=== PATIENT | male | born 1940 | race Caucasian/White ===

== ENCOUNTER 2019-06-14 14:58 | Inpatient (IN) | payer OTHER, MEDICAID ==
[~2019-06-14] VITALS: Ht 170.2 cm; Wt 87.1 kg
[2019-06-14 15:23] VITALS: BP_SYST 112
[2019-06-14 15:48] LABS: BILIRUBIN,URINE NEGATIVE (NEGATIVE); CLARITY/URINE HAZY (CLEAR); COLOR,URINE YELLOW (YELLOW); GLUCOSE,URINE NEGATIVE (NEGATIVE); KETONES,URINE NEGATIVE (NEGATIVE); LEUKOCYTE ESTERASE ,URINE 3+ (NEGATIVE); NITRITE, URINE NEGATIVE (NEGATIVE); PH,URINE 5.5 (5.0-8.0); PROTEIN URINE NEGATIVE (NEGATIVE); UROBILINOGEN,URINE 0.2 (0.2-1.0)
[2019-06-14 15:50] LABS: BLOOD, URINE TRACE (NEGATIVE)
[2019-06-14 16:05] LABS: BACTERIA,URINE FEW /HPF (None Seen); WBC,URINE >100 /HPF (0-3)
[2019-06-14 16:06] LABS: MUCUS,URINE None Seen /LPF (None Seen)
[2019-06-14] MEDS ORDERED: cefTRIAXone 1 GM IVPB PREMIX 50 ML IV ONE (16:15)
[2019-06-14 16:45] LABS: BASOPHILS % (AUTO) 0.6 % (0.0-2.0); EOSINOPHILS # (AUTO) 0.2 K/uL (0.0-0.4); EOSINOPHILS % (AUTO) 5.1 % (0.0-4.0); HEMATOCRIT 27.7 % (36-54); HEMOGLOBIN 8.8 g/dL (14.0-18.0); LYMPHOCYTES # (AUTO) 0.9 K/uL (1.0-5.5); LYMPHOCYTES % (AUTO) 19.7 % (20.5-51.5); MEAN CORPUSCULAR HEMOGLOBIN 29 pg (27-31); MEAN CORPUSCULAR HGB CONC 32 % (32-36); MEAN CORPUSCULAR VOLUME 91 fL (79.0-98.0); MONOCYTES # (AUTO) 0.8 K/uL (0.0-1.0); MONOCYTES % (AUTO) 16.7 % (1.7-9.3); NEUTROPHILS # (AUTO) 2.8 K/uL (1.8-7.7); NEUTROPHILS % (AUTO) 57.9 % (40.0-70.0); PLATELET COUNT (AUTO) 101 K/uL (130-430); RED BLOOD CELL COUNT(AUTO) 3.05 MIL/uL (4.2-6.2); RED CELL DISTRIBUTION WIDTH 20.5 % (9.0-15.0); WHITE BLOOD COUNT (AUTO) 4.8 K/uL (4.8-10.8)
[2019-06-14 16:51] LABS: ANION GAP 8 (5-15); CALCIUM 10.3 mg/dL (8.4-11.0); CHLORIDE 104 mmol/L (98-107); CREATININE 2.44 mg/dL (0.55-1.30); GLUCOSE 187 mg/dL (70-99); POTASSIUM 3.6 mmol/L (3.5-5.1); SODIUM SERUM 138 mmol/L (136-145); UREA NITROGEN, BLOOD 81 mg/dL (8-21)
[2019-06-14 16:55] LABS: ALANINE AMINOTRANSFERASE 23 U/L (12-78); ALBUMIN 3.1 g/dL (3.4-4.8); ASPARTATE AMINOTRANSFERASE 15 U/L (10-37); TOTAL BILIRUBIN 0.4 mg/dL (0.0-1.0)
[2019-06-14] MEDS ORDERED: ZOLP5TAB2 PO (17:01)
[2019-06-14] MEDS ORDERED: NA P133E41 RC (17:01)
[2019-06-14] MEDS ORDERED: MOM PO (17:01)
[2019-06-14] MEDS ORDERED: TAMS0.4C96 PO (17:01)
[2019-06-14] MEDS ORDERED: ALLO100T PO (17:01)
[2019-06-14] MEDS ORDERED: TYC3 PO (17:01)
[2019-06-14] MEDS ORDERED: FAMO40TA7 PO (17:01)
[2019-06-14] MEDS ORDERED: FURO40TA5 PO (17:01)
[2019-06-14] MEDS ORDERED: BISA10SU61 RC (17:01)
[2019-06-14] MEDS ORDERED: FINA5TAB3 PO (17:01)
[2019-06-14] MEDS ORDERED: CALC0.258 PO (17:01)
[2019-06-14] MEDS ORDERED: ACET325T53 PO (17:01)
[2019-06-14] MEDS ORDERED: BUME1TAB4 PO (17:01)
[2019-06-14] MEDS ORDERED: METO50TA7 PO (17:01)
[2019-06-14 18:19] VITALS: BP_SYST 101
[2019-06-14 19:39] VITALS: BP_SYST 109
[2019-06-14] MEDS: FUROSEMIDE 40 MG/4 ML VIAL IVP SCH (20:08)
[2019-06-14] MEDS: HYDROcodone/ACETAMIN 5-325 MG TAB (NORCO/ VICODIN) PO PRN (21:04)
[2019-06-14] MEDS: ZOLPIDEM TARTRATE 5 MG TABLET PO PRN (21:18)
[2019-06-15 01:32] VITALS: BP_SYST 117
[2019-06-15] MEDS: HYDROcodone/ACETAMIN 5-325 MG TAB (NORCO/ VICODIN) PO PRN ×2 (02:00→22:37)
[2019-06-15] MEDS: FUROSEMIDE 40 MG/4 ML VIAL IVP SCH ×2 (07:59→20:18)
[2019-06-15 08:00] VITALS: BP_SYST 112
[2019-06-15 09:10] LABS: INR 1.6 (0.80-1.20)
[2019-06-15 09:11] LABS: PROTHROMBIN TIME 16.2 SECS (9.5-12.5)
[2019-06-15 09:21] LABS: ALANINE AMINOTRANSFERASE 24 U/L (12-78); ALBUMIN 3.3 g/dL (3.4-4.8); ASPARTATE AMINOTRANSFERASE 14 U/L (10-37); CALCIUM 10.4 mg/dL (8.4-11.0); CHLORIDE 103 mmol/L (98-107); GLUCOSE 185 mg/dL (70-99); POTASSIUM 3.7 mmol/L (3.5-5.1); SODIUM SERUM 141 mmol/L (136-145); THYROID STIMULATING HORMONE 1.88 uIu/mL (0.36-3.74); TOTAL BILIRUBIN 0.5 mg/dL (0.0-1.0); UREA NITROGEN, BLOOD 86 mg/dL (8-21)
[2019-06-15 09:29] LABS: ANION GAP 13 (5-15)
[2019-06-15] MEDS ORDERED: ALLOPURINOL 100 MG TABLET (ZYLOPRIM) PO ONE (09:30)
[2019-06-15] MEDS ORDERED: TAMSULOSIN HCL 0.4 MG CAP PO ONE (09:30)
[2019-06-15 09:52] LABS: TOTAL IRON BIND. CAPACITY 341 ug/dL (250-450)
[2019-06-15] MEDS: APIXABAN 2.5 MG TABLET PO SCH ×2 (10:02→20:20)
[2019-06-15] MEDS: CARVEDILOL 6.25 MG TABLET (COREG) PO SCH ×2 (10:03→20:19)
[2019-06-15 10:07] LABS: BILIRUBIN,URINE NEGATIVE (NEGATIVE); CLARITY/URINE CLEAR (CLEAR); COLOR,URINE YELLOW (YELLOW); GLUCOSE,URINE NEGATIVE (NEGATIVE); KETONES,URINE NEGATIVE (NEGATIVE); LEUKOCYTE ESTERASE ,URINE 2+ (NEGATIVE); NITRITE, URINE NEGATIVE (NEGATIVE); PH,URINE 5.5 (5.0-8.0); PROTEIN URINE TRACE (NEGATIVE); UROBILINOGEN,URINE 0.2 (0.2-1.0)
[2019-06-15 10:08] LABS: BLOOD, URINE TRACE (NEGATIVE)
[2019-06-15 10:12] LABS: BACTERIA,URINE FEW /HPF (None Seen); MUCUS,URINE None Seen /LPF (None Seen); RBC,URINE 0-3 /HPF (0-3); WBC,URINE 20-50 /HPF (0-3)
[2019-06-15 12:00] VITALS: BP_SYST 108
[2019-06-15 15:42] VITALS: BP_SYST 109
[2019-06-15 20:00] VITALS: BP_SYST 140
[2019-06-15] MEDS: ZOLPIDEM TARTRATE 5 MG TABLET PO PRN (20:19)
[2019-06-16 00:59] VITALS: BP_SYST 114
[2019-06-16 07:23] LABS: BASOPHILS % (AUTO) 0.7 % (0.0-2.0); EOSINOPHILS # (AUTO) 0.3 K/uL (0.0-0.4); EOSINOPHILS % (AUTO) 7.2 % (0.0-4.0); HEMATOCRIT 28.1 % (36-54); LYMPHOCYTES # (AUTO) 1.2 K/uL (1.0-5.5); LYMPHOCYTES % (AUTO) 27.3 % (20.5-51.5); MEAN CORPUSCULAR HEMOGLOBIN 29 pg (27-31); MEAN CORPUSCULAR HGB CONC 32 % (32-36); MEAN CORPUSCULAR VOLUME 90 fL (79.0-98.0); MONOCYTES # (AUTO) 0.7 K/uL (0.0-1.0); MONOCYTES % (AUTO) 15.9 % (1.7-9.3); NEUTROPHILS # (AUTO) 2.2 K/uL (1.8-7.7); NEUTROPHILS % (AUTO) 48.9 % (40.0-70.0); PLATELET COUNT (AUTO) 99 K/uL (130-430); RED BLOOD CELL COUNT(AUTO) 3.11 MIL/uL (4.2-6.2); RED CELL DISTRIBUTION WIDTH 20.6 % (9.0-15.0); WHITE BLOOD COUNT (AUTO) 4.5 K/uL (4.8-10.8)
[2019-06-16 07:36] LABS: ANION GAP 7 (5-15); CALCIUM 10.6 mg/dL (8.4-11.0); CHLORIDE 102 mmol/L (98-107); CHOLESTEROL 140 mg/dL (<200); CREATININE 2.31 mg/dL (0.55-1.30); GLUCOSE 153 mg/dL (70-99); HDL CHOLESTEROL 31 mg/dL (>45); LDL CHOLESTEROL 94 mg/dL (<100); POTASSIUM 3.7 mmol/L (3.5-5.1); SODIUM SERUM 137 mmol/L (136-145); TRIGLYCERIDES 93 mg/dL (30-150); UREA NITROGEN, BLOOD 83 mg/dL (8-21)
[2019-06-16 08:06] VITALS: BP_SYST 120
[2019-06-16] MEDS: FUROSEMIDE 40 MG/4 ML VIAL IVP SCH ×2 (08:46→22:05)
[2019-06-16] MEDS: TAMSULOSIN HCL 0.4 MG CAP PO SCH (08:47)
[2019-06-16] MEDS: CARVEDILOL 6.25 MG TABLET (COREG) PO SCH ×2 (08:47→22:04)
[2019-06-16] MEDS: ALLOPURINOL 100 MG TABLET (ZYLOPRIM) PO SCH (08:48)
[2019-06-16] MEDS: APIXABAN 2.5 MG TABLET PO SCH ×2 (08:53→22:05)
[2019-06-16] MEDS: HYDROcodone/ACETAMIN 5-325 MG TAB (NORCO/ VICODIN) PO PRN ×2 (09:59→22:04)
[2019-06-16 11:55] VITALS: BP_SYST 98
[2019-06-16 13:12] LABS: FERRITIN 46 ng/mL (30-400)
[2019-06-16 15:58] LABS: PATIENT WEIGHT 195 LBS
[2019-06-16 16:00] VITALS: BP_SYST 101
[2019-06-16 17:32] LABS: TOTAL VOLUME 24HRS,URINE 1900 mL; TPROTEIN U,24HR 438.9 mg/24HR (0-130)
[2019-06-16 17:34] LABS: CREATININE,URINE 27.1 MG/DL (30-125)
[2019-06-16 18:44] LABS: CREATININE 2.31 mg/dL (0.55-1.30); CREATININE CLEARANCE,URINE 13.4 ml/min (80-120)
[2019-06-16 21:00] VITALS: BP_SYST 114
[2019-06-16] MEDS: ZOLPIDEM TARTRATE 5 MG TABLET PO PRN (22:03)
[2019-06-17 00:37] VITALS: BP_SYST 109
[2019-06-17 05:33] LABS: BASOPHILS % (AUTO) 0.6 % (0.0-2.0); EOSINOPHILS # (AUTO) 0.3 K/uL (0.0-0.4); EOSINOPHILS % (AUTO) 6.6 % (0.0-4.0); HEMATOCRIT 27.1 % (36-54); HEMOGLOBIN 8.8 g/dL (14.0-18.0); LYMPHOCYTES # (AUTO) 1.5 K/uL (1.0-5.5); LYMPHOCYTES % (AUTO) 28.3 % (20.5-51.5); MEAN CORPUSCULAR HEMOGLOBIN 29 pg (27-31); MEAN CORPUSCULAR HGB CONC 32 % (32-36); MEAN CORPUSCULAR VOLUME 91 fL (79.0-98.0); MONOCYTES # (AUTO) 0.7 K/uL (0.0-1.0); MONOCYTES % (AUTO) 13.5 % (1.7-9.3); NEUTROPHILS # (AUTO) 2.7 K/uL (1.8-7.7); PLATELET COUNT (AUTO) 102 K/uL (130-430); RED BLOOD CELL COUNT(AUTO) 2.98 MIL/uL (4.2-6.2); WHITE BLOOD COUNT (AUTO) 5.3 K/uL (4.8-10.8)
[2019-06-17 06:12] LABS: ALANINE AMINOTRANSFERASE 24 U/L (12-78); ALBUMIN 3.2 g/dL (3.4-4.8); ANION GAP 6 (5-15); ASPARTATE AMINOTRANSFERASE 16 U/L (10-37); CALCIUM 9.9 mg/dL (8.4-11.0); CHLORIDE 104 mmol/L (98-107); CREATININE 2.74 mg/dL (0.55-1.30); GLUCOSE 137 mg/dL (70-99); POTASSIUM 3.8 mmol/L (3.5-5.1); SODIUM SERUM 140 mmol/L (136-145); TOTAL BILIRUBIN 0.3 mg/dL (0.0-1.0); UREA NITROGEN, BLOOD 89 mg/dL (8-21)
[2019-06-17 08:22] VITALS: BP_SYST 108; BP_SYST 144
[2019-06-17] MEDS: HYDROcodone/ACETAMIN 5-325 MG TAB (NORCO/ VICODIN) PO PRN ×2 (08:57→15:38)
[2019-06-17] MEDS: TAMSULOSIN HCL 0.4 MG CAP PO SCH (08:58)
[2019-06-17] MEDS: APIXABAN 2.5 MG TABLET PO SCH ×2 (08:58→20:37)
[2019-06-17] MEDS: ALLOPURINOL 100 MG TABLET (ZYLOPRIM) PO SCH (08:59)
[2019-06-17] MEDS: CARVEDILOL 6.25 MG TABLET (COREG) PO SCH ×2 (08:59→20:38)
[2019-06-17] MEDS: FUROSEMIDE 40 MG/4 ML VIAL IVP SCH ×2 (09:31→20:42)
[2019-06-17 11:33] VITALS: BP_SYST 126
[2019-06-17 15:21] VITALS: BP_SYST 98
[2019-06-17] MEDS ORDERED: LEVOFLOXACIN 250 MG/D5W 50 ML IV SCH (17:45)
[2019-06-17 20:00] VITALS: BP_SYST 95
[2019-06-17] MEDS ORDERED: LEVOFLOXACIN 250 MG/D5W 50 ML IV ONE (21:26)
[2019-06-17] MEDS ORDERED: IPRATROPIUM/ALBUTEROL SULFATE 3 ML AMPUL.NEB (DUONEB) INH PRN (23:30)
[2019-06-17 23:34] VITALS: BP_SYST 95
[2019-06-17] MEDS: ZOLPIDEM TARTRATE 5 MG TABLET PO PRN (23:37)
[2019-06-17] MEDS ORDERED: LORazepam 1 MG TABLET PO ONE (23:45)
[2019-06-17] MEDS ORDERED: HYDROcodone/ACETAMIN 5-325 MG TAB (NORCO/ VICODIN) PO ONE (23:45)
[2019-06-18 00:36] VITALS: BP_SYST 107
[2019-06-18 07:19] LABS: ANION GAP 8 (5-15); CALCIUM 10.3 mg/dL (8.4-11.0); CHLORIDE 103 mmol/L (98-107); CREATININE 2.46 mg/dL (0.55-1.30); GLUCOSE 128 mg/dL (70-99); POTASSIUM 3.7 mmol/L (3.5-5.1); SODIUM SERUM 140 mmol/L (136-145); UREA NITROGEN, BLOOD 84 mg/dL (8-21)
[2019-06-18 08:08] VITALS: BP_SYST 92
[2019-06-18] MEDS: CARVEDILOL 6.25 MG TABLET (COREG) PO SCH (09:00)
[2019-06-18] MEDS: ALLOPURINOL 100 MG TABLET (ZYLOPRIM) PO SCH (09:16)
[2019-06-18] MEDS: TAMSULOSIN HCL 0.4 MG CAP PO SCH (09:16)
[2019-06-18] MEDS: APIXABAN 2.5 MG TABLET PO SCH (09:17)
[2019-06-18] MEDS ORDERED: LEVOFLOXACIN 250 MG TABLET PO SCH (10:00)
[2019-06-18 10:39] VITALS: BP_SYST 117
[2019-06-18 11:01] VITALS: BP_SYST 117
[2019-06-18 12:00] VITALS: BP_SYST 127
[2019-06-18] MEDS: HYDROcodone/ACETAMIN 5-325 MG TAB (NORCO/ VICODIN) PO PRN (12:24)
[2019-06-18] MEDS ORDERED: CARVEDILOL 3.125 MG TABLET (COREG) PO SCH (21:00)
[2019-06-19] MEDS ORDERED: FUROSEMIDE 40 MG TABLET PO SCH (09:00)
== END 2019-06-18 13:10 | DRG 291 ==
LOC: SED 14:58 → STU 17:37
PROVIDERS: ADMIT Internal Medicine Hospice and Palliative Medicine; ATTEND Internal Medicine Hospice and Palliative Medicine
DX: I13.0 Hypertensive heart and chronic kidney disease with heart failure and stage 1 through stage 4 chronic kidney disease, or unspecified chronic kidney disease (principal); I50.33 Acute on chronic diastolic (congestive) heart failure; N17.0 Acute kidney failure with tubular necrosis; N18.4 Chronic kidney disease, stage 4 (severe); N39.0 Urinary tract infection, site not specified; N13.30 Unspecified hydronephrosis; E11.40 Type 2 diabetes mellitus with diabetic neuropathy, unspecified; E11.22 Type 2 diabetes mellitus with diabetic chronic kidney disease; I48.2 Chronic atrial fibrillation; M19.90 Unspecified osteoarthritis, unspecified site; G89.4 Chronic pain syndrome; M10.9 Gout, unspecified; D64.9 Anemia, unspecified; D69.6 Thrombocytopenia, unspecified; B96.4 Proteus (mirabilis) (morganii) as the cause of diseases classified elsewhere; K40.90 Unilateral inguinal hernia, without obstruction or gangrene, not specified as recurrent; E66.9 Obesity, unspecified; Z95.0 Presence of cardiac pacemaker; Z79.899 Other long term (current) drug therapy; Z79.01 Long term (current) use of anticoagulants; Z87.442 Personal history of urinary calculi; Z68.30 Body mass index [BMI] 30.0-30.9, adult
CPT/HCPCS: 36415; 71045; 76770; 80048; 80053; 80061; 81000-TC; 82575-TC; 82607; 82728; 83036; 83540-TC; 83550-TC; 83605; 83880; 84156; 84443-TC; 85025; 85610-TC; 87040-TC; 87081; 87086; 87186-TC; 93005; 93306; 94640; 97116-GP; 97530-GP; 99285; G0378; J0696; J1940; J1956; J7620

== ENCOUNTER 2019-07-12 01:04 | Inpatient (IN) | payer OTHER, MEDICAID ==
[~2019-07-12] VITALS: Ht 170.2 cm; Wt 87.1 kg
[~2019-07-12 01:04] MED LIST: ACET325T53 PO; ALLO100T PO; BISA10SU61 RC; BUME1TAB4 PO; CALC0.258 PO; FAMO40TA7 PO; FINA5TAB3 PO; FURO40TA5 PO; METO50TA7 PO; MOM PO; NA P133E41 RC; TAMS0.4C96 PO; TYC3 PO; ZOLP5TAB2 PO
[2019-07-12 01:05] VITALS: BP_SYST 130
[2019-07-12] MEDS ORDERED: MORPHINE 2 MG/ML INJ. SYRINGE IVP ONE (02:00)
[2019-07-12 02:24] LABS: HEMOGLOBIN 8.5 g/dL (14.0-18.0)
[2019-07-12 02:35] LABS: INR 1.7 (0.80-1.20); PROTHROMBIN TIME 16.7 SECS (9.5-12.5)
[2019-07-12 02:39] LABS: HEMATOCRIT 26.2 % (36-54); MEAN CORPUSCULAR HEMOGLOBIN 29 pg (27-31); MEAN CORPUSCULAR HGB CONC 32 % (32-36); MEAN CORPUSCULAR VOLUME 89 fL (79.0-98.0); PLATELET COUNT (AUTO) 274 K/uL (130-430); RED BLOOD CELL COUNT(AUTO) 2.95 MIL/uL (4.2-6.2); RED CELL DISTRIBUTION WIDTH 19.7 % (9.0-15.0); WHITE BLOOD COUNT (AUTO) 13.4 K/uL (4.8-10.8)
[2019-07-12 02:42] LABS: ANION GAP 5 (5-15); CALCIUM 9.8 mg/dL (8.4-11.0); CHLORIDE 100 mmol/L (98-107); CREATININE 3.39 mg/dL (0.55-1.30); GLUCOSE 245 mg/dL (70-99); POTASSIUM 4.9 mmol/L (3.5-5.1); SODIUM SERUM 133 mmol/L (136-145)
[2019-07-12 02:47] LABS: ALANINE AMINOTRANSFERASE 19 U/L (12-78); ALBUMIN 2.5 g/dL (3.4-4.8); ASPARTATE AMINOTRANSFERASE 20 U/L (10-37); TOTAL BILIRUBIN 0.2 mg/dL (0.0-1.0)
[2019-07-12 02:49] LABS: UREA NITROGEN, BLOOD 119 mg/dL (8-21)
[2019-07-12] MEDS ORDERED: CARV3.1246 PO (02:53)
[2019-07-12] MEDS ORDERED: FURO-149 PO (02:53)
[2019-07-12] MEDS ORDERED: FAMO20TA8 PO (02:53)
[2019-07-12] MEDS ORDERED: APIX2.5T PO (02:53)
[2019-07-12] MEDS ORDERED: ASPIRIN 81 MG TAB.CHEW PO ONE (03:00)
[2019-07-12] MEDS ORDERED: LEVOFLOXACIN 500 MG/D5W 100 ML IV ONE (03:00)
[2019-07-12] MEDS ORDERED: NACL 0.9% 2,000 ML IV ONE (03:00)
[2019-07-12] MEDS ORDERED: PIPERACILLIN/TAZO 3.375 GM in NS 50 ML IV ONE (03:00)
[2019-07-12 03:01] LABS: BAND % (MANUAL) 8 % (0-6)
[2019-07-12] MEDS ORDERED: COLC0.6T67 PO (03:01)
[2019-07-12] MEDS ORDERED: HYDR-4273 PO (03:01)
[2019-07-12] MEDS ORDERED: GLIP10TA11 PO (03:01)
[2019-07-12] MEDS ORDERED: METO5TAB8 PO (03:01)
[2019-07-12] MEDS ORDERED: LINA290C PO (03:01)
[2019-07-12 03:02] LABS: BASOPHILS % (MANUAL) 0 % (0-2); EOSINOPHILS % (MANUAL) 0 % (0-7); LYMPHOCYTES % (MANUAL) 10 % (20-46); MONOCYTES % (MANUAL) 5 % (0-11)
[2019-07-12] MEDS ORDERED: MED4 PO ×2 (03:04)
[2019-07-12 03:16] LABS: BILIRUBIN,URINE NEGATIVE (NEGATIVE); BLOOD, URINE NEGATIVE (NEGATIVE); CLARITY/URINE CLEAR (CLEAR); COLOR,URINE YELLOW (YELLOW); GLUCOSE,URINE NEGATIVE (NEGATIVE); KETONES,URINE NEGATIVE (NEGATIVE); LEUKOCYTE ESTERASE ,URINE NEGATIVE (NEGATIVE); NITRITE, URINE NEGATIVE (NEGATIVE); PROTEIN URINE NEGATIVE (NEGATIVE); UROBILINOGEN,URINE 0.2 (0.2-1.0)
[2019-07-12] MEDS ORDERED: PIPERACILLIN/TAZOBACTAM 3.375 GM/VIAL (ZOSYN) IV ONE (03:37)
[2019-07-12 04:24] VITALS: BP_SYST 127
[2019-07-12] MEDS ORDERED: MORPHINE 2 MG/ML INJ. SYRINGE IVP PRN (06:15)
[2019-07-12] MEDS: MORPHINE 4 MG/ML INJ. SYRINGE IVP PRN ×2 (07:20→20:26)
[2019-07-12 08:00] VITALS: BP_SYST 118
[2019-07-12] MEDS ORDERED: FAMOTIDINE 20 MG TABLET PO ONE (09:45)
[2019-07-12] MEDS ORDERED: CARVEDILOL 3.125 MG TABLET (COREG) PO ONE (09:45)
[2019-07-12 12:48] VITALS: BP_SYST 114
[2019-07-12 16:00] VITALS: BP_SYST 118
[2019-07-12 20:00] VITALS: BP_SYST 121
[2019-07-12] MEDS: FUROSEMIDE 40 MG/4 ML VIAL IVP SCH (20:28)
[2019-07-12] MEDS: APIXABAN 2.5 MG TABLET PO SCH (20:31)
[2019-07-13] VITALS: BP_SYST 130
[2019-07-13] MEDS: MORPHINE 4 MG/ML INJ. SYRINGE IVP PRN ×5 (01:04→20:17)
[2019-07-13 07:59] LABS: BASOPHILS % (AUTO) 0.2 % (0.0-2.0); EOSINOPHILS # (AUTO) 0.1 K/uL (0.0-0.4); EOSINOPHILS % (AUTO) 0.4 % (0.0-4.0); HEMATOCRIT 30.7 % (36-54); HEMOGLOBIN 10.4 g/dL (14.0-18.0); LYMPHOCYTES # (AUTO) 1.5 K/uL (1.0-5.5); LYMPHOCYTES % (AUTO) 9.1 % (20.5-51.5); MEAN CORPUSCULAR HEMOGLOBIN 30 pg (27-31); MEAN CORPUSCULAR HGB CONC 34 % (32-36); MEAN CORPUSCULAR VOLUME 88 fL (79.0-98.0); MONOCYTES # (AUTO) 1.7 K/uL (0.0-1.0); MONOCYTES % (AUTO) 10.2 % (1.7-9.3); NEUTROPHILS # (AUTO) 13.1 K/uL (1.8-7.7); NEUTROPHILS % (AUTO) 80.1 % (40.0-70.0); PLATELET COUNT (AUTO) 228 K/uL (130-430); RED BLOOD CELL COUNT(AUTO) 3.47 MIL/uL (4.2-6.2); RED CELL DISTRIBUTION WIDTH 19.9 % (9.0-15.0); WHITE BLOOD COUNT (AUTO) 16.3 K/uL (4.8-10.8)
[2019-07-13 08:00] VITALS: BP_SYST 121
[2019-07-13 08:15] LABS: ALANINE AMINOTRANSFERASE 11 U/L (12-78); ALBUMIN 2.4 g/dL (3.4-4.8); ANION GAP 3 (5-15); ASPARTATE AMINOTRANSFERASE 14 U/L (10-37); CALCIUM 10.1 mg/dL (8.4-11.0); CHLORIDE 104 mmol/L (98-107); CREATININE 2.47 mg/dL (0.55-1.30); GLUCOSE 62 mg/dL (70-99); POTASSIUM 4.8 mmol/L (3.5-5.1); SODIUM SERUM 136 mmol/L (136-145); TOTAL BILIRUBIN 0.3 mg/dL (0.0-1.0); UREA NITROGEN, BLOOD 97 mg/dL (8-21)
[2019-07-13] MEDS: ALLOPURINOL 100 MG TABLET (ZYLOPRIM) PO SCH (09:37)
[2019-07-13] MEDS: FAMOTIDINE 20 MG TABLET PO SCH (09:37)
[2019-07-13] MEDS: FUROSEMIDE 40 MG/4 ML VIAL IVP SCH ×2 (09:37→20:09)
[2019-07-13] MEDS: CARVEDILOL 3.125 MG TABLET (COREG) PO SCH (09:38)
[2019-07-13] MEDS: APIXABAN 2.5 MG TABLET PO SCH ×2 (09:39→20:11)
[2019-07-13 13:13] VITALS: BP_SYST 104
[2019-07-13 16:57] VITALS: BP_SYST 98
[2019-07-13 20:00] VITALS: BP_SYST 113
[2019-07-14] MEDS: MORPHINE 4 MG/ML INJ. SYRINGE IVP PRN ×2 (00:11→04:22)
[2019-07-14 02:14] VITALS: BP_SYST 113
[2019-07-14 08:06] LABS: BASOPHILS % (AUTO) 0.1 % (0.0-2.0); EOSINOPHILS % (AUTO) 0.2 % (0.0-4.0); HEMATOCRIT 30.2 % (36-54); HEMOGLOBIN 9.6 g/dL (14.0-18.0); LYMPHOCYTES # (AUTO) 1.3 K/uL (1.0-5.5); LYMPHOCYTES % (AUTO) 7.5 % (20.5-51.5); MEAN CORPUSCULAR HEMOGLOBIN 28 pg (27-31); MEAN CORPUSCULAR HGB CONC 32 % (32-36); MEAN CORPUSCULAR VOLUME 89 fL (79.0-98.0); MONOCYTES # (AUTO) 1.4 K/uL (0.0-1.0); MONOCYTES % (AUTO) 8.5 % (1.7-9.3); NEUTROPHILS # (AUTO) 14.3 K/uL (1.8-7.7); NEUTROPHILS % (AUTO) 83.7 % (40.0-70.0); PLATELET COUNT (AUTO) 196 K/uL (130-430); RED CELL DISTRIBUTION WIDTH 20.3 % (9.0-15.0); WHITE BLOOD COUNT (AUTO) 17.1 K/uL (4.8-10.8)
[2019-07-14 08:28] LABS: ALANINE AMINOTRANSFERASE 12 U/L (12-78); ALBUMIN 2.3 g/dL (3.4-4.8); ANION GAP 3 (5-15); ASPARTATE AMINOTRANSFERASE 11 U/L (10-37); CALCIUM 10.5 mg/dL (8.4-11.0); CHLORIDE 102 mmol/L (98-107); GLUCOSE 118 mg/dL (70-99); SODIUM SERUM 137 mmol/L (136-145); TOTAL BILIRUBIN 0.5 mg/dL (0.0-1.0); UREA NITROGEN, BLOOD 84 mg/dL (8-21)
[2019-07-14 08:30] VITALS: BP_SYST 107
[2019-07-14] MEDS: APIXABAN 2.5 MG TABLET PO SCH ×2 (09:26→20:28)
[2019-07-14] MEDS: ALLOPURINOL 100 MG TABLET (ZYLOPRIM) PO SCH (09:27)
[2019-07-14] MEDS: FAMOTIDINE 20 MG TABLET PO SCH (09:27)
[2019-07-14] MEDS: CARVEDILOL 3.125 MG TABLET (COREG) PO SCH (09:27)
[2019-07-14] MEDS: FUROSEMIDE 40 MG/4 ML VIAL IVP SCH ×2 (09:28→20:28)
[2019-07-14] MEDS: HYDROcodone/ACETAMIN 5-325 MG TAB (NORCO/ VICODIN) PO PRN (11:39)
[2019-07-14 12:00] VITALS: BP_SYST 106
[2019-07-14] MEDS ORDERED: POLYETHYLENE GLYCOL 3350, 17 GM/ POWD.PACK PO ONE (16:00)
[2019-07-14 16:21] VITALS: BP_SYST 105
[2019-07-14 20:00] VITALS: BP_SYST 102
[2019-07-15] MEDS: HYDROcodone/ACETAMIN 5-325 MG TAB (NORCO/ VICODIN) PO PRN ×2 (00:07→06:18)
[2019-07-15 01:35] VITALS: BP_SYST 100
[2019-07-15 06:59] LABS: BASOPHILS % (AUTO) 0.1 % (0.0-2.0); MONOCYTES # (AUTO) 1.8 K/uL (0.0-1.0); RED CELL DISTRIBUTION WIDTH 20.2 % (9.0-15.0)
[2019-07-15 07:10] LABS: EOSINOPHILS # (AUTO) 0.1 K/uL (0.0-0.4); EOSINOPHILS % (AUTO) 0.3 % (0.0-4.0); HEMATOCRIT 27.6 % (36-54); LYMPHOCYTES # (AUTO) 1.4 K/uL (1.0-5.5); LYMPHOCYTES % (AUTO) 6.9 % (20.5-51.5); MEAN CORPUSCULAR HEMOGLOBIN 29 pg (27-31); MEAN CORPUSCULAR HGB CONC 32 % (32-36); MEAN CORPUSCULAR VOLUME 90 fL (79.0-98.0); MONOCYTES % (AUTO) 9.4 % (1.7-9.3); NEUTROPHILS # (AUTO) 16.3 K/uL (1.8-7.7); NEUTROPHILS % (AUTO) 83.3 % (40.0-70.0); PLATELET COUNT (AUTO) 155 K/uL (130-430); RED BLOOD CELL COUNT(AUTO) 3.08 MIL/uL (4.2-6.2); WHITE BLOOD COUNT (AUTO) 19.5 K/uL (4.8-10.8)
[2019-07-15 07:13] LABS: ALANINE AMINOTRANSFERASE 7 U/L (12-78); ALBUMIN 2.1 g/dL (3.4-4.8); ANION GAP 3 (5-15); ASPARTATE AMINOTRANSFERASE 10 U/L (10-37); CALCIUM 9.8 mg/dL (8.4-11.0); CHLORIDE 98 mmol/L (98-107); CREATININE 2.36 mg/dL (0.55-1.30); GLUCOSE 197 mg/dL (70-99); POTASSIUM 3.8 mmol/L (3.5-5.1); SODIUM SERUM 132 mmol/L (136-145); TOTAL BILIRUBIN 0.5 mg/dL (0.0-1.0); UREA NITROGEN, BLOOD 78 mg/dL (8-21)
[2019-07-15 08:18] VITALS: BP_SYST 97
[2019-07-15] MEDS: FUROSEMIDE 40 MG/4 ML VIAL IVP SCH (08:41)
[2019-07-15] MEDS: CARVEDILOL 3.125 MG TABLET (COREG) PO SCH (08:41)
[2019-07-15] MEDS: POLYETHYLENE GLYCOL 3350, 17 GM/ POWD.PACK PO SCH (09:00)
[2019-07-15] MEDS: FAMOTIDINE 20 MG TABLET PO SCH (09:02)
[2019-07-15] MEDS: ALLOPURINOL 100 MG TABLET (ZYLOPRIM) PO SCH (09:02)
[2019-07-15] MEDS: APIXABAN 2.5 MG TABLET PO SCH ×2 (09:06→20:54)
[2019-07-15] MEDS: cefTRIAXone 1 GM IVPB PREMIX 50 ML IV SCH (11:26)
[2019-07-15 12:00] VITALS: BP_SYST 106
[2019-07-15 17:08] VITALS: BP_SYST 101
[2019-07-15] MEDS: FUROSEMIDE 40 MG TABLET PO SCH (17:14)
[2019-07-15 20:00] VITALS: BP_SYST 113
[2019-07-15] MEDS ORDERED: ACETAMINOPHEN 325 MG TABLET PO PRN (22:00)
[2019-07-15] MEDS ORDERED: metroNIDAZOLE 500 mg/NS 100 ML IV ONE (22:11)
[2019-07-15] MEDS ORDERED: HYDROcodone/ACETAMIN 5-325 MG TAB (NORCO/ VICODIN) PO SCH (22:30)
[2019-07-15] MEDS: metroNIDAZOLE 500 mg/NS 100 ML IV SCH (22:38)
[2019-07-16 00:14] VITALS: BP_SYST 126
[2019-07-16] MEDS: FUROSEMIDE 40 MG TABLET PO SCH ×2 (06:32→17:44)
[2019-07-16 07:08] LABS: ALANINE AMINOTRANSFERASE 10 U/L (12-78); ANION GAP 6 (5-15); ASPARTATE AMINOTRANSFERASE 19 U/L (10-37); CALCIUM 9.5 mg/dL (8.4-11.0); CHLORIDE 98 mmol/L (98-107); CREATININE 2.08 mg/dL (0.55-1.30); GLUCOSE 222 mg/dL (70-99); POTASSIUM 3.7 mmol/L (3.5-5.1); SODIUM SERUM 133 mmol/L (136-145); TOTAL BILIRUBIN 0.5 mg/dL (0.0-1.0); UREA NITROGEN, BLOOD 66 mg/dL (8-21)
[2019-07-16 08:00] VITALS: BP_SYST 120
[2019-07-16] MEDS: CARVEDILOL 3.125 MG TABLET (COREG) PO SCH (08:49)
[2019-07-16] MEDS: FAMOTIDINE 20 MG TABLET PO SCH (08:49)
[2019-07-16] MEDS: ALLOPURINOL 100 MG TABLET (ZYLOPRIM) PO SCH ×2 (08:49→08:53)
[2019-07-16] MEDS: APIXABAN 2.5 MG TABLET PO SCH ×2 (08:50→20:14)
[2019-07-16] MEDS: cefTRIAXone 1 GM IVPB PREMIX 50 ML IV SCH (08:50)
[2019-07-16] MEDS: POLYETHYLENE GLYCOL 3350, 17 GM/ POWD.PACK PO SCH (08:52)
[2019-07-16] MEDS: metroNIDAZOLE 500 mg/NS 100 ML IV SCH ×2 (09:42→20:14)
[2019-07-16 10:32] LABS: BASOPHILS # (AUTO) 0.1 K/uL (0.0-0.2); BASOPHILS % (AUTO) 0.5 % (0.0-2.0); EOSINOPHILS # (AUTO) 0.1 K/uL (0.0-0.4); EOSINOPHILS % (AUTO) 0.5 % (0.0-4.0); HEMATOCRIT 28.9 % (36-54); HEMOGLOBIN 9.1 g/dL (14.0-18.0); LYMPHOCYTES # (AUTO) 1.1 K/uL (1.0-5.5); LYMPHOCYTES % (AUTO) 6.9 % (20.5-51.5); MEAN CORPUSCULAR HEMOGLOBIN 28 pg (27-31); MEAN CORPUSCULAR HGB CONC 32 % (32-36); MEAN CORPUSCULAR VOLUME 90 fL (79.0-98.0); MONOCYTES # (AUTO) 1.7 K/uL (0.0-1.0); MONOCYTES % (AUTO) 10.5 % (1.7-9.3); NEUTROPHILS # (AUTO) 13.4 K/uL (1.8-7.7); NEUTROPHILS % (AUTO) 81.6 % (40.0-70.0); PLATELET COUNT (AUTO) 144 K/uL (130-430); RED BLOOD CELL COUNT(AUTO) 3.23 MIL/uL (4.2-6.2); RED CELL DISTRIBUTION WIDTH 20.1 % (9.0-15.0); WHITE BLOOD COUNT (AUTO) 16.4 K/uL (4.8-10.8)
[2019-07-16 11:30] VITALS: BP_SYST 133
[2019-07-16] MEDS: HYDROcodone/ACETAMIN 10-325 MG TAB PO PRN ×2 (14:15→20:15)
[2019-07-16 15:13] VITALS: BP_SYST 111
[2019-07-16 20:00] VITALS: BP_SYST 115
[2019-07-17 00:48] VITALS: BP_SYST 98
[2019-07-17] MEDS: HYDROcodone/ACETAMIN 5-325 MG TAB (NORCO/ VICODIN) PO PRN ×2 (04:16→22:20)
[2019-07-17] MEDS: FUROSEMIDE 40 MG TABLET PO SCH ×2 (05:16→17:41)
[2019-07-17 07:35] VITALS: BP_SYST 109
[2019-07-17 08:28] LABS: BASOPHILS % (AUTO) 0.1 % (0.0-2.0); EOSINOPHILS # (AUTO) 0.1 K/uL (0.0-0.4); EOSINOPHILS % (AUTO) 0.8 % (0.0-4.0); HEMATOCRIT 28.4 % (36-54); HEMOGLOBIN 9.1 g/dL (14.0-18.0); LYMPHOCYTES # (AUTO) 1.2 K/uL (1.0-5.5); LYMPHOCYTES % (AUTO) 9.2 % (20.5-51.5); MEAN CORPUSCULAR HEMOGLOBIN 28 pg (27-31); MEAN CORPUSCULAR HGB CONC 32 % (32-36); MEAN CORPUSCULAR VOLUME 88 fL (79.0-98.0); MONOCYTES # (AUTO) 1.8 K/uL (0.0-1.0); NEUTROPHILS # (AUTO) 10.5 K/uL (1.8-7.7); NEUTROPHILS % (AUTO) 76.9 % (40.0-70.0); PLATELET COUNT (AUTO) 125 K/uL (130-430); RED BLOOD CELL COUNT(AUTO) 3.23 MIL/uL (4.2-6.2); RED CELL DISTRIBUTION WIDTH 20.3 % (9.0-15.0); WHITE BLOOD COUNT (AUTO) 13.6 K/uL (4.8-10.8)
[2019-07-17] MEDS: APIXABAN 2.5 MG TABLET PO SCH ×2 (08:32→20:41)
[2019-07-17] MEDS: ALLOPURINOL 100 MG TABLET (ZYLOPRIM) PO SCH (08:33)
[2019-07-17] MEDS: CARVEDILOL 3.125 MG TABLET (COREG) PO SCH (08:33)
[2019-07-17] MEDS: POLYETHYLENE GLYCOL 3350, 17 GM/ POWD.PACK PO SCH (08:33)
[2019-07-17] MEDS: FAMOTIDINE 20 MG TABLET PO SCH (08:33)
[2019-07-17] MEDS: HYDROcodone/ACETAMIN 10-325 MG TAB PO PRN (08:35)
[2019-07-17] MEDS: metroNIDAZOLE 500 mg/NS 100 ML IV SCH ×2 (08:35→20:39)
[2019-07-17 08:37] LABS: ALANINE AMINOTRANSFERASE 7 U/L (12-78); ALBUMIN 2.1 g/dL (3.4-4.8); ANION GAP 8 (5-15); ASPARTATE AMINOTRANSFERASE 10 U/L (10-37); CALCIUM 9.8 mg/dL (8.4-11.0); CHLORIDE 100 mmol/L (98-107); GLUCOSE 176 mg/dL (70-99); POTASSIUM 3.1 mmol/L (3.5-5.1); SODIUM SERUM 139 mmol/L (136-145); TOTAL BILIRUBIN 0.4 mg/dL (0.0-1.0); UREA NITROGEN, BLOOD 56 mg/dL (8-21)
[2019-07-17] MEDS ORDERED: POTASSIUM CHLORIDE 20 MEQ TAB.PRT.SR PO ONE (10:00)
[2019-07-17] MEDS: cefTRIAXone 1 GM IVPB PREMIX 50 ML IV SCH (10:11)
[2019-07-17 11:35] VITALS: BP_SYST 124
[2019-07-17 15:33] VITALS: BP_SYST 96
[2019-07-17 17:40] VITALS: BP_SYST 110
[2019-07-17 20:00] VITALS: BP_SYST 122
[2019-07-18 01:36] VITALS: BP_SYST 120
[2019-07-18] MEDS: HYDROcodone/ACETAMIN 10-325 MG TAB PO PRN ×3 (02:46→20:23)
[2019-07-18] MEDS: FUROSEMIDE 40 MG TABLET PO SCH ×3 (06:11→18:19)
[2019-07-18 07:28] LABS: BASOPHILS # (AUTO) 0.1 K/uL (0.0-0.2); BASOPHILS % (AUTO) 0.6 % (0.0-2.0); EOSINOPHILS # (AUTO) 0.1 K/uL (0.0-0.4); HEMATOCRIT 27.5 % (36-54); HEMOGLOBIN 8.7 g/dL (14.0-18.0); LYMPHOCYTES # (AUTO) 1.5 K/uL (1.0-5.5); LYMPHOCYTES % (AUTO) 12.9 % (20.5-51.5); MEAN CORPUSCULAR HEMOGLOBIN 28 pg (27-31); MEAN CORPUSCULAR HGB CONC 32 % (32-36); MEAN CORPUSCULAR VOLUME 89 fL (79.0-98.0); MONOCYTES # (AUTO) 1.5 K/uL (0.0-1.0); MONOCYTES % (AUTO) 13.5 % (1.7-9.3); NEUTROPHILS # (AUTO) 8.3 K/uL (1.8-7.7); PLATELET COUNT (AUTO) 126 K/uL (130-430); RED CELL DISTRIBUTION WIDTH 19.8 % (9.0-15.0); WHITE BLOOD COUNT (AUTO) 11.5 K/uL (4.8-10.8)
[2019-07-18 07:52] VITALS: BP_SYST 109
[2019-07-18 07:53] LABS: ALANINE AMINOTRANSFERASE 11 U/L (12-78); ANION GAP 5 (5-15); ASPARTATE AMINOTRANSFERASE 12 U/L (10-37); CALCIUM 9.8 mg/dL (8.4-11.0); CHLORIDE 103 mmol/L (98-107); CREATININE 2.14 mg/dL (0.55-1.30); GLUCOSE 197 mg/dL (70-99); SODIUM SERUM 140 mmol/L (136-145); TOTAL BILIRUBIN 0.2 mg/dL (0.0-1.0); UREA NITROGEN, BLOOD 59 mg/dL (8-21)
[2019-07-18] MEDS: ALLOPURINOL 100 MG TABLET (ZYLOPRIM) PO SCH (08:18)
[2019-07-18] MEDS: FAMOTIDINE 20 MG TABLET PO SCH (08:19)
[2019-07-18] MEDS: APIXABAN 2.5 MG TABLET PO SCH ×2 (08:19→20:24)
[2019-07-18] MEDS: CARVEDILOL 3.125 MG TABLET (COREG) PO SCH (08:21)
[2019-07-18] MEDS: POLYETHYLENE GLYCOL 3350, 17 GM/ POWD.PACK PO SCH (08:22)
[2019-07-18] MEDS: cefTRIAXone 1 GM IVPB PREMIX 50 ML IV SCH (08:32)
[2019-07-18] MEDS: metroNIDAZOLE 500 mg/NS 100 ML IV SCH ×2 (10:42→20:22)
[2019-07-18 11:28] VITALS: BP_SYST 92
[2019-07-18] MEDS: TAMSULOSIN HCL 0.4 MG CAP PO ONE ×2 (12:30→18:18)
[2019-07-18 16:02] VITALS: BP_SYST 102
[2019-07-18 21:00] VITALS: BP_SYST 98
[2019-07-19 00:24] VITALS: BP_SYST 97
[2019-07-19] MEDS: HYDROcodone/ACETAMIN 10-325 MG TAB PO PRN ×3 (00:30→09:59)
[2019-07-19 05:15] VITALS: BP_SYST 103
[2019-07-19] MEDS: FUROSEMIDE 40 MG TABLET PO SCH (05:15)
[2019-07-19 08:05] VITALS: BP_SYST 117
[2019-07-19] MEDS ORDERED: TAMSULOSIN HCL 0.4 MG CAP PO SCH (09:00)
[2019-07-19] MEDS: POLYETHYLENE GLYCOL 3350, 17 GM/ POWD.PACK PO SCH (09:30)
[2019-07-19] MEDS: ALLOPURINOL 100 MG TABLET (ZYLOPRIM) PO SCH (09:31)
[2019-07-19] MEDS: FAMOTIDINE 20 MG TABLET PO SCH (09:33)
[2019-07-19] MEDS: CARVEDILOL 3.125 MG TABLET (COREG) PO SCH (09:34)
[2019-07-19] MEDS: APIXABAN 2.5 MG TABLET PO SCH (09:36)
[2019-07-19] MEDS: metroNIDAZOLE 500 mg/NS 100 ML IV SCH (09:40)
[2019-07-19] MEDS: cefTRIAXone 1 GM IVPB PREMIX 50 ML IV SCH (09:41)
[2019-07-19 11:23] VITALS: BP_SYST 90
[2019-07-19 15:28] VITALS: BP_SYST 112
[2019-07-19 17:13] VITALS: BP_SYST 112
== END 2019-07-19 18:25 | DRG 871 ==
LOC: SED 01:04 → STU 04:02 → SMU 07-16 16:01
PROVIDERS: ADMIT Internal Medicine Hospice and Palliative Medicine; ATTEND Internal Medicine Hospice and Palliative Medicine
DX: A41.9 Sepsis, unspecified organism (principal); J69.0 Pneumonitis due to inhalation of food and vomit; N17.0 Acute kidney failure with tubular necrosis; G04.90 Encephalitis and encephalomyelitis, unspecified; I50.33 Acute on chronic diastolic (congestive) heart failure; G92 Toxic encephalopathy; E43 Unspecified severe protein-calorie malnutrition; I13.0 Hypertensive heart and chronic kidney disease with heart failure and stage 1 through stage 4 chronic kidney disease, or unspecified chronic kidney disease; N18.4 Chronic kidney disease, stage 4 (severe); N13.30 Unspecified hydronephrosis; F11.20 Opioid dependence, uncomplicated; E87.2 Acidosis; N40.1 Benign prostatic hyperplasia with lower urinary tract symptoms; I08.0 Rheumatic disorders of both mitral and aortic valves; D63.8 Anemia in other chronic diseases classified elsewhere; F44.4 Conversion disorder with motor symptom or deficit; M19.90 Unspecified osteoarthritis, unspecified site; E11.22 Type 2 diabetes mellitus with diabetic chronic kidney disease; G89.4 Chronic pain syndrome; I48.2 Chronic atrial fibrillation; Z95.0 Presence of cardiac pacemaker; Z90.49 Acquired absence of other specified parts of digestive tract; Z79.899 Other long term (current) drug therapy; T40.605A Adverse effect of unspecified narcotics, initial encounter
CPT/HCPCS: 36415; 71045; 76770; 80048; 80053; 81003; 83605; 83880; 84484; 85007; 85025; 85027; 85610-TC; 85730-TC; 87040-TC; 87081; 87086; 92610-GN; 93005; 96365; 96368; 96375; 97110-GP; 97116-GP; 97530-GP; 99285; G0378; J0696; J1940; J1956; J2270; J2543; J3490; J7030

== ENCOUNTER 2019-08-04 14:28 | Inpatient (IN) | payer OTHER, MEDICAID ==
[~2019-08-04] VITALS: Ht 170.2 cm; Wt 86.6 kg
[2019-08-04 14:28] VITALS: BP_SYST 101
[~2019-08-04 14:28] MED LIST changes: -ACET325T53 PO; +APIX2.5T PO; -BISA10SU61 RC; -BUME1TAB4 PO; -CALC0.258 PO; +CARV3.1246 PO; +COLC0.6T67 PO; +FAMO20TA8 PO; -FAMO40TA7 PO; -FINA5TAB3 PO; +FURO-149 PO; -FURO40TA5 PO; +GLIP10TA11 PO; +HYDR-4273 PO; +LINA290C PO; -METO50TA7 PO; +METO5TAB8 PO; -MOM PO; -NA P133E41 RC; -TAMS0.4C96 PO; -TYC3 PO; -ZOLP5TAB2 PO
[2019-08-04] MEDS ORDERED: NS 500 ML IV ONE (14:45)
[2019-08-04 15:14] LABS: BASOPHILS % (AUTO) 0.4 % (0.0-2.0); EOSINOPHILS # (AUTO) 0.1 K/uL (0.0-0.4); EOSINOPHILS % (AUTO) 0.8 % (0.0-4.0); HEMATOCRIT 26.8 % (36-54); HEMOGLOBIN 8.6 g/dL (14.0-18.0); LYMPHOCYTES # (AUTO) 1.2 K/uL (1.0-5.5); LYMPHOCYTES % (AUTO) 14.3 % (20.5-51.5); MEAN CORPUSCULAR HEMOGLOBIN 29 pg (27-31); MEAN CORPUSCULAR HGB CONC 32 % (32-36); MEAN CORPUSCULAR VOLUME 91 fL (79.0-98.0); MONOCYTES # (AUTO) 1.4 K/uL (0.0-1.0); MONOCYTES % (AUTO) 16.8 % (1.7-9.3); NEUTROPHILS # (AUTO) 5.5 K/uL (1.8-7.7); NEUTROPHILS % (AUTO) 67.7 % (40.0-70.0); PLATELET COUNT (AUTO) 205 K/uL (130-430); RED BLOOD CELL COUNT(AUTO) 2.94 MIL/uL (4.2-6.2); RED CELL DISTRIBUTION WIDTH 21.2 % (9.0-15.0); WHITE BLOOD COUNT (AUTO) 8.2 K/uL (4.8-10.8)
[2019-08-04 15:32] LABS: INR 1.9 (0.80-1.20); PROTHROMBIN TIME 18.5 SECS (9.5-12.5)
[2019-08-04 15:41] LABS: ANION GAP 10 (5-15); CHLORIDE 101 mmol/L (98-107); CREATININE 2.05 mg/dL (0.55-1.30); GLUCOSE 93 mg/dL (70-99); SODIUM SERUM 133 mmol/L (136-145)
[2019-08-04 15:45] LABS: ALANINE AMINOTRANSFERASE 14 U/L (12-78); ALBUMIN 1.8 g/dL (3.4-4.8); ASPARTATE AMINOTRANSFERASE 27 U/L (10-37); TOTAL BILIRUBIN 0.2 mg/dL (0.0-1.0)
[2019-08-04 15:50] LABS: POTASSIUM 2.6 mmol/L (3.5-5.1)
[2019-08-04 15:52] LABS: UREA NITROGEN, BLOOD 85 mg/dL (8-21)
[2019-08-04] MEDS ORDERED: POTASSIUM CHLORIDE 20 MEQ TAB.PRT.SR PO ONE (16:00)
[2019-08-04] MEDS ORDERED: ASPIRIN 81 MG TAB.CHEW PO ONE (16:00)
[2019-08-04] MEDS ORDERED: LEVOFLOXACIN 500 MG/D5W 100 ML IV ONE (16:15)
[2019-08-04 16:50] LABS: BILIRUBIN,URINE NEGATIVE (NEGATIVE); BLOOD, URINE NEGATIVE (NEGATIVE); CLARITY/URINE HAZY (CLEAR); COLOR,URINE YELLOW (YELLOW); GLUCOSE,URINE NEGATIVE (NEGATIVE); KETONES,URINE NEGATIVE (NEGATIVE); LEUKOCYTE ESTERASE ,URINE NEGATIVE (NEGATIVE); NITRITE, URINE NEGATIVE (NEGATIVE); PH,URINE 5.5 (5.0-8.0); PROTEIN URINE NEGATIVE (NEGATIVE); UROBILINOGEN,URINE 0.2 (0.2-1.0)
[2019-08-04 18:15] VITALS: BP_SYST 121
[2019-08-04] MEDS: DEXTROSE 50% JECT 50 ML DISP.SYRIN IVP PRN (20:29)
[2019-08-04 20:38] VITALS: BP_SYST 109
[2019-08-04] MEDS: D5NS 1,000 ML IV SCH (22:32)
[2019-08-04] MEDS: INSULIN REGULAR, HUMAN 100 UNITS/ML, 10 ML VIAL (humuLIN R) SUBCUT PRN (23:33)
[2019-08-05] MEDS: DEXTROSE 50% JECT 50 ML DISP.SYRIN IVP PRN (05:10)
[2019-08-05 05:18] VITALS: BP_SYST 122
[2019-08-05 06:10] LABS: BASOPHILS % (AUTO) 0.3 % (0.0-2.0); EOSINOPHILS % (AUTO) 0.2 % (0.0-4.0); HEMATOCRIT 27.3 % (36-54); HEMOGLOBIN 8.9 g/dL (14.0-18.0); LYMPHOCYTES # (AUTO) 1.2 K/uL (1.0-5.5); LYMPHOCYTES % (AUTO) 11.7 % (20.5-51.5); MEAN CORPUSCULAR HEMOGLOBIN 29 pg (27-31); MEAN CORPUSCULAR HGB CONC 33 % (32-36); MEAN CORPUSCULAR VOLUME 90 fL (79.0-98.0); MONOCYTES # (AUTO) 1.6 K/uL (0.0-1.0); NEUTROPHILS # (AUTO) 7.6 K/uL (1.8-7.7); NEUTROPHILS % (AUTO) 72.8 % (40.0-70.0); PLATELET COUNT (AUTO) 234 K/uL (130-430); RED BLOOD CELL COUNT(AUTO) 3.03 MIL/uL (4.2-6.2); RED CELL DISTRIBUTION WIDTH 20.7 % (9.0-15.0); WHITE BLOOD COUNT (AUTO) 10.4 K/uL (4.8-10.8)
[2019-08-05] MEDS: INSULIN REGULAR, HUMAN 100 UNITS/ML, 10 ML VIAL (humuLIN R) SUBCUT PRN (06:11)
[2019-08-05 06:33] LABS: SODIUM SERUM 138 mmol/L (136-145)
[2019-08-05 06:54] LABS: ALANINE AMINOTRANSFERASE 15 U/L (12-78); ALBUMIN 1.9 g/dL (3.4-4.8); ANION GAP 12 (5-15); ASPARTATE AMINOTRANSFERASE 19 U/L (10-37); CALCIUM 9.8 mg/dL (8.4-11.0); CHLORIDE 99 mmol/L (98-107); CREATININE 2.08 mg/dL (0.55-1.30); TOTAL BILIRUBIN 0.3 mg/dL (0.0-1.0); UREA NITROGEN, BLOOD 79 mg/dL (8-21)
[2019-08-05 07:17] LABS: POTASSIUM 2.6 mmol/L (3.5-5.1)
[2019-08-05 07:18] LABS: GLUCOSE 47 mg/dL (70-99)
[2019-08-05 08:00] VITALS: BP_SYST 132
[2019-08-05] MEDS ORDERED: POTASSIUM CHLORIDE 40 MEQ in NS 250 ML IV ONE (08:45)
[2019-08-05] MEDS ORDERED: POTASSIUM CHLORIDE 20 MEQ TAB.PRT.SR PO ONE (09:00)
[2019-08-05] MEDS: CARVEDILOL 3.125 MG TABLET (COREG) PO SCH (09:00)
[2019-08-05] MEDS ORDERED: FAMOTIDINE 20 MG TABLET PO ONE (10:15)
[2019-08-05] MEDS ORDERED: APIXABAN 2.5 MG TABLET PO ONE (10:15)
[2019-08-05] MEDS ORDERED: FUROSEMIDE 40 MG TABLET PO ONE (10:15)
[2019-08-05] MEDS ORDERED: ALLOPURINOL 100 MG TABLET (ZYLOPRIM) PO ONE (10:15)
[2019-08-05 11:18] VITALS: BP_SYST 101
[2019-08-05] MEDS: D5NS 1,000 ML IV SCH (13:21)
[2019-08-05 16:25] VITALS: BP_SYST 100
[2019-08-05 19:45] VITALS: BP_SYST 95
[2019-08-05] MEDS: POTASSIUM CHLORIDE 20 MEQ TAB.PRT.SR PO SCH (20:29)
[2019-08-05] MEDS: APIXABAN 2.5 MG TABLET PO SCH (20:29)
[2019-08-05] MEDS: FUROSEMIDE 40 MG TABLET PO SCH (20:34)
[2019-08-05] MEDS: ACETAMINOPHEN 325 MG TABLET PO PRN (22:39)
[2019-08-06] MEDS: ACETAMINOPHEN 325 MG TABLET PO PRN ×2 (05:14→21:14)
[2019-08-06] MEDS: D5NS 1,000 ML IV SCH ×2 (05:14→20:07)
[2019-08-06] MEDS: INSULIN REGULAR, HUMAN 100 UNITS/ML, 10 ML VIAL (humuLIN R) SUBCUT PRN ×4 (06:12→20:11)
[2019-08-06 07:32] VITALS: BP_SYST 117
[2019-08-06 07:44] LABS: BASOPHILS % (AUTO) 0.3 % (0.0-2.0); EOSINOPHILS # (AUTO) 0.2 K/uL (0.0-0.4); EOSINOPHILS % (AUTO) 1.8 % (0.0-4.0); HEMATOCRIT 26.6 % (36-54); HEMOGLOBIN 8.6 g/dL (14.0-18.0); LYMPHOCYTES # (AUTO) 1.1 K/uL (1.0-5.5); LYMPHOCYTES % (AUTO) 10.6 % (20.5-51.5); MEAN CORPUSCULAR HEMOGLOBIN 29 pg (27-31); MEAN CORPUSCULAR HGB CONC 32 % (32-36); MEAN CORPUSCULAR VOLUME 91 fL (79.0-98.0); MONOCYTES # (AUTO) 1.2 K/uL (0.0-1.0); MONOCYTES % (AUTO) 11.9 % (1.7-9.3); NEUTROPHILS # (AUTO) 7.6 K/uL (1.8-7.7); NEUTROPHILS % (AUTO) 75.4 % (40.0-70.0); PLATELET COUNT (AUTO) 207 K/uL (130-430); RED BLOOD CELL COUNT(AUTO) 2.93 MIL/uL (4.2-6.2); WHITE BLOOD COUNT (AUTO) 10.1 K/uL (4.8-10.8)
[2019-08-06 07:55] LABS: ALANINE AMINOTRANSFERASE 14 U/L (12-78); ALBUMIN 1.7 g/dL (3.4-4.8); ANION GAP 10 (5-15); ASPARTATE AMINOTRANSFERASE 24 U/L (10-37); CALCIUM 9.8 mg/dL (8.4-11.0); CHLORIDE 105 mmol/L (98-107); CREATININE 1.92 mg/dL (0.55-1.30); GLUCOSE 224 mg/dL (70-99); POTASSIUM 3.5 mmol/L (3.5-5.1); SODIUM SERUM 139 mmol/L (136-145); TOTAL BILIRUBIN 0.2 mg/dL (0.0-1.0); UREA NITROGEN, BLOOD 75 mg/dL (8-21)
[2019-08-06] MEDS: ALLOPURINOL 100 MG TABLET (ZYLOPRIM) PO SCH (09:18)
[2019-08-06] MEDS: FAMOTIDINE 20 MG TABLET PO SCH (09:19)
[2019-08-06] MEDS: POTASSIUM CHLORIDE 20 MEQ TAB.PRT.SR PO SCH ×2 (09:19→20:00)
[2019-08-06] MEDS: APIXABAN 2.5 MG TABLET PO SCH (09:20)
[2019-08-06] MEDS: FUROSEMIDE 40 MG TABLET PO SCH ×2 (09:21→20:07)
[2019-08-06] MEDS: CARVEDILOL 3.125 MG TABLET (COREG) PO SCH (09:22)
[2019-08-06 13:23] VITALS: BP_SYST 104
[2019-08-06 14:47] LABS: INR 1.9 (0.80-1.20); PROTHROMBIN TIME 18.6 SECS (9.5-12.5)
[2019-08-06 16:55] VITALS: BP_SYST 117
[2019-08-06] MEDS ORDERED: QUEtiapine FUMARATE 25 MG TABLET PO SCH ×2 (18:00)
[2019-08-06 20:00] VITALS: BP_SYST 126
[2019-08-07 01:04] VITALS: BP_SYST 109
[2019-08-07 05:51] LABS: INR 1.7 (0.80-1.20); PROTHROMBIN TIME 16.7 SECS (9.5-12.5)
[2019-08-07 06:25] LABS: TOTAL IRON BIND. CAPACITY 97 ug/dL (250-450)
[2019-08-07 06:26] LABS: BASOPHILS % (AUTO) 0.4 % (0.0-2.0); EOSINOPHILS # (AUTO) 0.2 K/uL (0.0-0.4); EOSINOPHILS % (AUTO) 2.2 % (0.0-4.0); HEMATOCRIT 27.7 % (36-54); HEMOGLOBIN 8.9 g/dL (14.0-18.0); LYMPHOCYTES # (AUTO) 1.2 K/uL (1.0-5.5); LYMPHOCYTES % (AUTO) 12.1 % (20.5-51.5); MEAN CORPUSCULAR HEMOGLOBIN 29 pg (27-31); MEAN CORPUSCULAR HGB CONC 32 % (32-36); MEAN CORPUSCULAR VOLUME 91 fL (79.0-98.0); MONOCYTES % (AUTO) 9.9 % (1.7-9.3); NEUTROPHILS # (AUTO) 7.7 K/uL (1.8-7.7); NEUTROPHILS % (AUTO) 75.4 % (40.0-70.0); PLATELET COUNT (AUTO) 231 K/uL (130-430); RED BLOOD CELL COUNT(AUTO) 3.04 MIL/uL (4.2-6.2); RED CELL DISTRIBUTION WIDTH 20.9 % (9.0-15.0); WHITE BLOOD COUNT (AUTO) 10.2 K/uL (4.8-10.8)
[2019-08-07] MEDS: INSULIN REGULAR, HUMAN 100 UNITS/ML, 10 ML VIAL (humuLIN R) SUBCUT PRN ×4 (06:32→21:13)
[2019-08-07 06:35] LABS: ALANINE AMINOTRANSFERASE 16 U/L (12-78); ALBUMIN 1.8 g/dL (3.4-4.8); ANION GAP 7 (5-15); ASPARTATE AMINOTRANSFERASE 21 U/L (10-37); CALCIUM 9.9 mg/dL (8.4-11.0); CHLORIDE 107 mmol/L (98-107); CREATININE 1.81 mg/dL (0.55-1.30); FREE T4 (FREE THYROXINE) 1.3 ng/dl (0.8-1.5); GLUCOSE 200 mg/dL (70-99); PHOSPHORUS 2.5 mg/dL (2.7-4.5); POTASSIUM 3.4 mmol/L (3.5-5.1); SODIUM SERUM 139 mmol/L (136-145); THYROID STIMULATING HORMONE 1.18 uIu/mL (0.36-3.74); TOTAL BILIRUBIN 0.1 mg/dL (0.0-1.0); UREA NITROGEN, BLOOD 66 mg/dL (8-21)
[2019-08-07 07:57] VITALS: BP_SYST 120
[2019-08-07] MEDS: CARVEDILOL 3.125 MG TABLET (COREG) PO SCH (08:42)
[2019-08-07] MEDS: ALLOPURINOL 100 MG TABLET (ZYLOPRIM) PO SCH (08:42)
[2019-08-07] MEDS: POTASSIUM CHLORIDE 20 MEQ TAB.PRT.SR PO SCH ×2 (08:42→21:04)
[2019-08-07] MEDS: FAMOTIDINE 20 MG TABLET PO SCH (08:42)
[2019-08-07] MEDS: FUROSEMIDE 40 MG TABLET PO SCH ×2 (08:42→21:09)
[2019-08-07] MEDS ORDERED: APIXABAN 2.5 MG TABLET PO ONE (10:15)
[2019-08-07] MEDS: traMADol HCL HCL 50 MG TABLET (ULTRAM) PO SCH ×4 (11:00→23:00)
[2019-08-07 11:22] VITALS: BP_SYST 125
[2019-08-07 15:36] VITALS: BP_SYST 120
[2019-08-07] MEDS: D5NS 1,000 ML IV SCH (17:41)
[2019-08-07 20:00] VITALS: BP_SYST 116
[2019-08-07] MEDS: APIXABAN 2.5 MG TABLET PO SCH (21:04)
[2019-08-08] VITALS (7 sets, daily range): BP systolic 112–120
[2019-08-08] MEDS: traMADol HCL HCL 50 MG TABLET (ULTRAM) PO SCH ×6 (03:00→23:00)
[2019-08-08] MEDS: ACETAMINOPHEN 325 MG TABLET PO PRN ×2 (05:22→21:32)
[2019-08-08] MEDS: D5NS 1,000 ML IV SCH ×2 (05:23→23:49)
[2019-08-08] MEDS: INSULIN REGULAR, HUMAN 100 UNITS/ML, 10 ML VIAL (humuLIN R) SUBCUT PRN ×4 (06:29→20:23)
[2019-08-08 07:24] LABS: BASOPHILS % (AUTO) 0.4 % (0.0-2.0); EOSINOPHILS # (AUTO) 0.2 K/uL (0.0-0.4); EOSINOPHILS % (AUTO) 2.1 % (0.0-4.0); HEMATOCRIT 28.3 % (36-54); LYMPHOCYTES # (AUTO) 1.5 K/uL (1.0-5.5); LYMPHOCYTES % (AUTO) 14.2 % (20.5-51.5); MEAN CORPUSCULAR HEMOGLOBIN 29 pg (27-31); MEAN CORPUSCULAR HGB CONC 32 % (32-36); MEAN CORPUSCULAR VOLUME 91 fL (79.0-98.0); MONOCYTES % (AUTO) 9.2 % (1.7-9.3); NEUTROPHILS # (AUTO) 7.8 K/uL (1.8-7.7); PLATELET COUNT (AUTO) 213 K/uL (130-430); RED CELL DISTRIBUTION WIDTH 20.2 % (9.0-15.0); WHITE BLOOD COUNT (AUTO) 10.5 K/uL (4.8-10.8)
[2019-08-08 07:47] LABS: ANION GAP 9 (5-15); CALCIUM 10.2 mg/dL (8.4-11.0); CHLORIDE 108 mmol/L (98-107); CREATININE 1.71 mg/dL (0.55-1.30); GLUCOSE 185 mg/dL (70-99); POTASSIUM 3.8 mmol/L (3.5-5.1); SODIUM SERUM 140 mmol/L (136-145); UREA NITROGEN, BLOOD 60 mg/dL (8-21)
[2019-08-08] MEDS: POTASSIUM CHLORIDE 20 MEQ TAB.PRT.SR PO SCH ×2 (09:14→20:10)
[2019-08-08] MEDS: CARVEDILOL 3.125 MG TABLET (COREG) PO SCH (09:16)
[2019-08-08] MEDS: FAMOTIDINE 20 MG TABLET PO SCH (09:16)
[2019-08-08] MEDS: APIXABAN 2.5 MG TABLET PO SCH ×2 (09:19→20:23)
[2019-08-08] MEDS: FUROSEMIDE 40 MG TABLET PO SCH ×2 (09:19→20:18)
[2019-08-08] MEDS: ALLOPURINOL 100 MG TABLET (ZYLOPRIM) PO SCH (09:21)
[2019-08-08 11:06] LABS: NEUTROPHILS % (AUTO) 74.1 % (40.0-70.0)
[2019-08-09 01:21] VITALS: BP_SYST 107
[2019-08-09] MEDS: traMADol HCL HCL 50 MG TABLET (ULTRAM) PO SCH ×6 (03:53→23:00)
[2019-08-09] MEDS: POTASSIUM CHLORIDE 20 MEQ TAB.PRT.SR PO SCH ×2 (08:52→22:18)
[2019-08-09] MEDS: FAMOTIDINE 20 MG TABLET PO SCH (08:52)
[2019-08-09] MEDS: CARVEDILOL 3.125 MG TABLET (COREG) PO SCH (08:53)
[2019-08-09] MEDS: ALLOPURINOL 100 MG TABLET (ZYLOPRIM) PO SCH (08:53)
[2019-08-09] MEDS: FUROSEMIDE 40 MG TABLET PO SCH ×2 (08:53→22:18)
[2019-08-09] MEDS: ACETAMINOPHEN 325 MG TABLET PO PRN ×3 (08:54→23:04)
[2019-08-09] MEDS: APIXABAN 2.5 MG TABLET PO SCH ×2 (08:55→22:22)
[2019-08-09 11:10] VITALS: BP_SYST 110
[2019-08-09] MEDS: INSULIN REGULAR, HUMAN 100 UNITS/ML, 10 ML VIAL (humuLIN R) SUBCUT PRN ×2 (12:34→22:22)
[2019-08-09 15:20] VITALS: BP_SYST 131
[2019-08-09] MEDS: D5NS 1,000 ML IV SCH (15:40)
[2019-08-09 19:58] VITALS: BP_SYST 133
[2019-08-10] MEDS: traMADol HCL HCL 50 MG TABLET (ULTRAM) PO SCH ×5 (02:46→18:38)
[2019-08-10 07:50] VITALS: BP_SYST 122
[2019-08-10 07:53] LABS: BASOPHILS # (AUTO) 0.1 K/uL (0.0-0.2); BASOPHILS % (AUTO) 0.6 % (0.0-2.0); EOSINOPHILS # (AUTO) 0.2 K/uL (0.0-0.4); EOSINOPHILS % (AUTO) 1.4 % (0.0-4.0); HEMOGLOBIN 9.2 g/dL (14.0-18.0); LYMPHOCYTES # (AUTO) 1.6 K/uL (1.0-5.5); LYMPHOCYTES % (AUTO) 11.6 % (20.5-51.5); MEAN CORPUSCULAR HEMOGLOBIN 29 pg (27-31); MEAN CORPUSCULAR HGB CONC 32 % (32-36); MEAN CORPUSCULAR VOLUME 92 fL (79.0-98.0); MONOCYTES # (AUTO) 1.1 K/uL (0.0-1.0); MONOCYTES % (AUTO) 8.2 % (1.7-9.3); NEUTROPHILS # (AUTO) 10.9 K/uL (1.8-7.7); NEUTROPHILS % (AUTO) 78.2 % (40.0-70.0); PLATELET COUNT (AUTO) 204 K/uL (130-430); RED BLOOD CELL COUNT(AUTO) 3.16 MIL/uL (4.2-6.2); RED CELL DISTRIBUTION WIDTH 19.9 % (9.0-15.0); WHITE BLOOD COUNT (AUTO) 13.9 K/uL (4.8-10.8)
[2019-08-10 08:13] LABS: ALANINE AMINOTRANSFERASE 10 U/L (12-78); ALBUMIN 2.1 g/dL (3.4-4.8); ANION GAP 10 (5-15); ASPARTATE AMINOTRANSFERASE 13 U/L (10-37); CALCIUM 9.5 mg/dL (8.4-11.0); CHLORIDE 107 mmol/L (98-107); CREATININE 1.47 mg/dL (0.55-1.30); GLUCOSE 115 mg/dL (70-99); POTASSIUM 4.2 mmol/L (3.5-5.1); SODIUM SERUM 140 mmol/L (136-145); TOTAL BILIRUBIN 0.3 mg/dL (0.0-1.0); UREA NITROGEN, BLOOD 52 mg/dL (8-21)
[2019-08-10] MEDS: CARVEDILOL 3.125 MG TABLET (COREG) PO SCH (09:06)
[2019-08-10] MEDS: FAMOTIDINE 20 MG TABLET PO SCH (09:07)
[2019-08-10] MEDS: APIXABAN 2.5 MG TABLET PO SCH (09:07)
[2019-08-10] MEDS: POTASSIUM CHLORIDE 20 MEQ TAB.PRT.SR PO SCH (09:07)
[2019-08-10] MEDS: ALLOPURINOL 100 MG TABLET (ZYLOPRIM) PO SCH (09:07)
[2019-08-10] MEDS: FUROSEMIDE 40 MG TABLET PO SCH (09:07)
[2019-08-10] MEDS: D5NS 1,000 ML IV SCH (09:18)
[2019-08-10] MEDS: INSULIN REGULAR, HUMAN 100 UNITS/ML, 10 ML VIAL (humuLIN R) SUBCUT PRN (11:22)
[2019-08-10 11:30] VITALS: BP_SYST 136
[2019-08-10] MEDS: ACETAMINOPHEN 325 MG TABLET PO PRN (12:44)
[2019-08-10 15:51] VITALS: BP_SYST 112
[2019-08-10 17:40] VITALS: BP_SYST 118
== END 2019-08-10 19:55 | DRG 70 ==
LOC: SED 14:28 → STU 17:08
PROVIDERS: ADMIT Internal Medicine Hospice and Palliative Medicine; ATTEND Internal Medicine Hospice and Palliative Medicine
DX: G93.41 Metabolic encephalopathy (principal); I50.33 Acute on chronic diastolic (congestive) heart failure; N17.0 Acute kidney failure with tubular necrosis; I13.0 Hypertensive heart and chronic kidney disease with heart failure and stage 1 through stage 4 chronic kidney disease, or unspecified chronic kidney disease; F11.20 Opioid dependence, uncomplicated; E87.6 Hypokalemia; N18.9 Chronic kidney disease, unspecified; E11.22 Type 2 diabetes mellitus with diabetic chronic kidney disease; E11.649 Type 2 diabetes mellitus with hypoglycemia without coma; F41.1 Generalized anxiety disorder; E11.42 Type 2 diabetes mellitus with diabetic polyneuropathy; G89.4 Chronic pain syndrome; I08.3 Combined rheumatic disorders of mitral, aortic and tricuspid valves; I48.2 Chronic atrial fibrillation; K40.90 Unilateral inguinal hernia, without obstruction or gangrene, not specified as recurrent; T50.2X5A Adverse effect of carbonic-anhydrase inhibitors, benzothiadiazides and other diuretics, initial encounter; D63.8 Anemia in other chronic diseases classified elsewhere; N13.9 Obstructive and reflux uropathy, unspecified; Z79.01 Long term (current) use of anticoagulants; Z79.84 Long term (current) use of oral hypoglycemic drugs; Z79.4 Long term (current) use of insulin; Z79.899 Other long term (current) drug therapy; Z91.81 History of falling; Z95.0 Presence of cardiac pacemaker; Y92.89 Other specified places as the place of occurrence of the external cause
CPT/HCPCS: 36415; 70450-TC; 71045; 80048; 80053; 81003; 82140-TC; 82746; 82962; 83540-TC; 83550-TC; 83605; 83880; 84100-TC; 84439; 84443-TC; 84484; 85025; 85610-TC; 85730-TC; 87040-TC; 87081; 87086; 93005; 95816; 99285; G0378; J1815; J3480; J7042; J7050; J7120